=== PATIENT | female | born 1990 | race Hispanic/Latino ===

== ENCOUNTER 2024-07-07 19:32 | Emergency (ER) | payer BC, OTHER, SELFPAY | END 2024-07-07 20:51 | disposition home or self-care (01) | LOC: MADERS 19:32 | DX: S13.4XXA Sprain of ligaments of cervical spine, initial encounter (principal); V89.2XXA Person injured in unspecified motor-vehicle accident, traffic, initial encounter | CPT/HCPCS: 99283; G0390 ==